=== PATIENT | female | born 1980 | race Two or more races ===

== ENCOUNTER 2017-09-26 11:18 | Emergency (ER) | payer OTHER ==
[~2017-09-26] VITALS: Ht 175.3 cm; Wt 108.9 kg
[2017-09-26 12:37] LABS: Basophils # (auto) 0 uL; Basophils % (auto) 0.3 % (0.0-2.0); Eosinophils # (auto) 0.2 uL; Eosinophils % (auto) 2.5 % (0.0-7.0); Hematocrit 39.7 % (36.0-46.0); Hemoglobin 13.7 g/dL (12.2-16.2); Lymphocytes % (auto) 27.1 % (10.0-50.0); Mean Corpuscular Hemoglobin 30.3 pg (28.0-32.0); Mean Corpuscular Hgb Conc. 34.6 g/dL (32.0-36.0); Mean Corpuscular Volume 87.7 fL (80.0-100.0); Monocytes # (auto) 0.5 uL; Monocytes % (auto) 6.7 % (0.0-12.0); Neutrophils # (auto) 4.8 uL; Neutrophils % (auto) 63.4 % (37.0-80.0); Nucleated Red Blood Cells % 0.1 %; Platelet Count (auto) 315 10^3/uL (140-450); Red Blood Cells 4.53 10^6/uL (4.0-5.20); Red Cell Distribution Width 12.7 % (11.8-14.3); White Blood Cell 7.5 10^3/uL (4.4-10.8)
[2017-09-26 13:39] LABS: BUN/Creatinine Ratio 9.6; Bilirubin, Total 0.6 mg/dL (0.2-1.0); Calcium 8.4 mg/dL (8.5-10.1); Total Protein 7.7 g/dL (6.4-8.2)
[2017-09-26 13:40] LABS: Albumin 3.7 g/dL (3.4-5.0)
[2017-09-26] MEDS ORDERED: ACETAMINOPHEN 325 MG TAB PO ONE (14:45)
[2017-09-26 15:00] VITALS: BP 168/100
[2017-09-26] MEDS ORDERED: HYDROcodone-ACET 10/325MG TAB PO ONE (15:00)
== END 2017-09-26 15:04 | disposition home or self-care (01) ==
LOC: ER 11:18
DX: O20.0 Threatened abortion (principal); O16.1 Unspecified maternal hypertension, first trimester; Z3A.09 9 weeks gestation of pregnancy
CPT/HCPCS: 36415; 76801; 80053; 84702; 85025

== ENCOUNTER 2020-12-07 12:19 | Inpatient (IN) | payer OTHER ==
[~2020-12-07] VITALS: Ht 175.3 cm; Wt 117.4 kg
[2020-12-07] MEDS ORDERED: DexAMETHasone SOD PHOS 10MG/1ML VIAL INJ IV ONE (12:45)
[2020-12-07] MEDS ORDERED: cefTRIAXone 1GM/50ML D5W 50 ML IV ONE (13:00)
[2020-12-07 13:39] LABS: Basophils # (auto) 0 10 ^3/uL (0-0.2); Basophils % (auto) 0.3 % (0.0-2.0); Eosinophils # (auto) 0 10 ^3/uL (0-0.8); Hematocrit 40.4 % (36.0-46.0); Lymphocytes # (auto) 1.1 10 ^3/uL (0.4-5.4); Lymphocytes % (auto) 23.7 % (10.0-50.0); Mean Corpuscular Hemoglobin 29.3 pg (28.0-32.0); Mean Corpuscular Hgb Conc. 34.6 g/dL (32.0-36.0); Mean Corpuscular Volume 84.6 fL (80.0-100.0); Monocytes # (auto) 0.4 10 ^3/uL (0-1.3); Monocytes % (auto) 8.4 % (0.0-12.0); Neutrophils # (auto) 3.1 10 ^3/uL (1.6-8.6); Neutrophils % (auto) 67.6 % (37.0-80.0); Nucleated Red Blood Cells % 0.1 %; Platelet Count (auto) 215 10^3/uL (140-450); Red Blood Cells 4.78 10^6/uL (4.0-5.20); Red Cell Distribution Width 12.4 % (11.8-14.3); White Blood Cell 4.6 10^3/uL (4.4-10.8)
[2020-12-07 13:40] LABS: Urine Bacteria FEW /hpf (None Seen); Urine Blood Negative /uL (Negative); Urine Specific Gravity 1.004 (1.001-1.035); Urine WBC 34 /hpf (0 - 5)
[2020-12-07 13:54] LABS: Albumin 3.5 g/dL (3.4-5.0); Anion Gap 6 (5-15); Blood Urea Nitrogen 5 mg/dL (7-18); Calcium 7.8 mg/dL (8.5-10.1); Carbon Dioxide 26 mmol/L (21-32); Chloride 106 mmol/L (98-107); Glucose 116 mg/dL (74-106); Potassium 3.5 mmol/L (3.5-5.1); Sodium 138 mmol/L (136-145)
[2020-12-07] MEDS ORDERED: ACETAMINOPHEN 325 MG TAB PO ONE (14:00)
[2020-12-07] MEDS ORDERED: ONDANSETRON HCL 4 MG/2 ML VIAL IV ONE (14:00)
[2020-12-07 14:02] LABS: Alanine Aminotransferase 40 U/L (13-56); Alkaline Phosphatase 94 U/L (45-117); Aspartate Aminotransferase 36 U/L (15-37); BUN/Creatinine Ratio 6.6; Bilirubin, Total 0.3 mg/dL (0.2-1.0); CRP High Sensitivity 5.38 mg/dL (< 0.3); GFR African American 110 mL/min; GFR Non-African American 91 mL/min; Total Protein 7.4 g/dL (6.4-8.2)
[2020-12-07] MEDS ORDERED: HYDROcodone-ACET 5/325MG TAB PO ONE (16:15)
[2020-12-07] MEDS ORDERED: IOHEXOL 350 MG/ML 100ML IJ ONE (16:22)
[2020-12-07] MEDS ORDERED: REMDESIVIR PER PHARMACY 0 ML IV SCH (17:15)
[2020-12-07] MEDS ORDERED: MORPHINE SULF INJ 2 MG/ML SYRINGE 1ML IV PRN (17:15)
[2020-12-07] MEDS ORDERED: NITROGLYCERIN 0.4 MG SL TAB SL PRN (17:15)
[2020-12-07] MEDS: ZINC SULFATE 220mg CAP or TAB PO SCH (18:16)
[2020-12-07] MEDS: AZITHROMYCIN 500MG/ 250ML 250 ML IV SCH (18:17)
[2020-12-07] MEDS: ONDANSETRON HCL 4 MG/2 ML VIAL IV PRN (20:31)
[2020-12-07] MEDS: BUDESONIDE (INHALATION) 180 MCG IH IN SCH (22:00)
[2020-12-07 22:12] LABS: Thyroid Stimulating Hormone 0.31 uIU/mL (0.358-3.74)
[2020-12-07 22:23] VITALS: BP 135/85
[2020-12-07] MEDS: ENOXAPARIN SOD 40 MG/0.4 ML SYRINGE SC SCH (22:50)
[2020-12-07] MEDS: ACETAMINOPHEN 500 MG TAB PO PRN (22:52)
[2020-12-07 23:10] VITALS: BP 135/85
[2020-12-07] MEDS ORDERED: GABA300C10 PO (23:32)
[2020-12-07] MEDS ORDERED: AMLO-489 PO (23:32)
[2020-12-07] MEDS ORDERED: SULF500T8 PO (23:32)
[2020-12-07] MEDS ORDERED: IRBE150T26 PO (23:38)
[2020-12-08 01:47] VITALS: BP 135/85
[2020-12-08 05:00] VITALS: BP 115/78
[2020-12-08 05:53] LABS: Basophils # (auto) 0 10 ^3/uL (0-0.2); Basophils % (auto) 0.1 % (0.0-2.0); Eosinophils # (auto) 0 10 ^3/uL (0-0.8); Hematocrit 37.8 % (36.0-46.0); Hemoglobin 13.6 g/dL (12.2-16.2); Lymphocytes # (auto) 1.2 10 ^3/uL (0.4-5.4); Lymphocytes % (auto) 29.5 % (10.0-50.0); Mean Corpuscular Volume 83.3 fL (80.0-100.0); Monocytes # (auto) 0.4 10 ^3/uL (0-1.3); Monocytes % (auto) 10.9 % (0.0-12.0); Neutrophils # (auto) 2.4 10 ^3/uL (1.6-8.6); Neutrophils % (auto) 59.5 % (37.0-80.0); Nucleated Red Blood Cells % 0.1 %; Platelet Count (auto) 217 10^3/uL (140-450); Red Blood Cells 4.54 10^6/uL (4.0-5.20); Red Cell Distribution Width 12.5 % (11.8-14.3); White Blood Cell 4.1 10^3/uL (4.4-10.8)
[2020-12-08 06:15] LABS: Albumin 3.3 g/dL (3.4-5.0); Potassium 4.1 mmol/L (3.5-5.1)
[2020-12-08 06:19] LABS: BUN/Creatinine Ratio 12.5; Total Protein 7.2 g/dL (6.4-8.2)
[2020-12-08] MEDS: DexAMETHasone SOD PHOS 10MG/1ML VIAL INJ IV SCH (08:27)
[2020-12-08] MEDS: ZINC SULFATE 220mg CAP or TAB PO SCH (08:28)
[2020-12-08] MEDS: AZITHROMYCIN 500MG/ 250ML 250 ML IV SCH (08:28)
[2020-12-08] MEDS: ASCORBIC ACID 1,000 MG TAB PO SCH (08:28)
[2020-12-08] MEDS: CHOLECALCIFEROL (VITD3) 2,000 UNIT CAP/TAB PO SCH (08:28)
[2020-12-08] MEDS: ENOXAPARIN SOD 40 MG/0.4 ML SYRINGE SC SCH ×2 (08:28→20:59)
[2020-12-08] MEDS: cefTRIAXone 1GM/50ML D5W 50 ML IV SCH (08:28)
[2020-12-08] MEDS: BUDESONIDE (INHALATION) 180 MCG IH IN SCH ×2 (08:43→21:44)
[2020-12-08 09:01] VITALS: BP 136/90
[2020-12-08] MEDS: ACETAMINOPHEN 325 MG TAB PO PRN (10:41)
[2020-12-08 13:00] VITALS: BP 130/86
[2020-12-08 17:06] VITALS: BP 119/84
[2020-12-08] MEDS: ALBUTEROL SULF HFA 90MCG INH 200DOSE IN PRN (21:44)
[2020-12-08 22:00] VITALS: BP 144/97
[2020-12-08] MEDS: ACETAMINOPHEN 500 MG TAB PO PRN (23:25)
[2020-12-09 05:00] VITALS: BP 142/97
[2020-12-09] MEDS: ACETAMINOPHEN 325 MG TAB PO PRN (05:43)
[2020-12-09] MEDS: ALBUTEROL SULF HFA 90MCG INH 200DOSE IN PRN (06:31)
[2020-12-09] MEDS: BUDESONIDE (INHALATION) 180 MCG IH IN SCH (06:32)
[2020-12-09] MEDS ORDERED: IVERMECTIN 3 MG TAB PO ONE (07:00)
[2020-12-09 07:13] LABS: Basophils # (auto) 0 10 ^3/uL (0-0.2); Basophils % (auto) 0.1 % (0.0-2.0); Eosinophils # (auto) 0 10 ^3/uL (0-0.8); Hemoglobin 13.5 g/dL (12.2-16.2); Lymphocytes # (auto) 1.7 10 ^3/uL (0.4-5.4); Mean Corpuscular Hemoglobin 29.8 pg (28.0-32.0); Mean Corpuscular Hgb Conc. 35.4 g/dL (32.0-36.0); Mean Corpuscular Volume 84.1 fL (80.0-100.0); Monocytes # (auto) 0.5 10 ^3/uL (0-1.3); Monocytes % (auto) 6.1 % (0.0-12.0); Neutrophils # (auto) 5.5 10 ^3/uL (1.6-8.6); Neutrophils % (auto) 71.8 % (37.0-80.0); Platelet Count (auto) 248 10^3/uL (140-450); Red Blood Cells 4.52 10^6/uL (4.0-5.20); Red Cell Distribution Width 12.5 % (11.8-14.3); White Blood Cell 7.7 10^3/uL (4.4-10.8)
[2020-12-09 07:31] LABS: Calcium 7.9 mg/dL (8.5-10.1); Potassium 3.4 mmol/L (3.5-5.1)
[2020-12-09 07:33] LABS: BUN/Creatinine Ratio 14.5
[2020-12-09 09:00] VITALS: BP 147/92
[2020-12-09] MEDS: cefTRIAXone 1GM/50ML D5W 50 ML IV SCH (09:00)
[2020-12-09] MEDS: DexAMETHasone SOD PHOS 10MG/1ML VIAL INJ IV SCH (09:36)
[2020-12-09] MEDS: CHOLECALCIFEROL (VITD3) 2,000 UNIT CAP/TAB PO SCH (09:37)
[2020-12-09] MEDS: AZITHROMYCIN 500MG/ 250ML 250 ML IV SCH (09:37)
[2020-12-09] MEDS: ENOXAPARIN SOD 40 MG/0.4 ML SYRINGE SC SCH (09:37)
[2020-12-09] MEDS: ZINC SULFATE 220mg CAP or TAB PO SCH (09:37)
[2020-12-09] MEDS: ASCORBIC ACID 1,000 MG TAB PO SCH (09:37)
[2020-12-09] MEDS: ONDANSETRON HCL 4 MG/2 ML VIAL IV PRN (10:30)
[2020-12-09] MEDS: ACETAMINOPHEN 500 MG TAB PO PRN (11:30)
== END 2020-12-09 13:55 | disposition home or self-care (01) | DRG 177 ==
LOC: ER 12:19 → TELE 17:18 → TELE-EAST 21:12
PROVIDERS: ADMIT Nurse Practitioner Acute Care; ATTEND Internal Medicine
DX: U07.1 COVID-19 (principal); J12.82 Pneumonia due to coronavirus disease 2019; J96.91 Respiratory failure, unspecified with hypoxia; N12 Tubulo-interstitial nephritis, not specified as acute or chronic; D68.59 Other primary thrombophilia; D89.839 Cytokine release syndrome, grade unspecified; E66.9 Obesity, unspecified; K76.0 Fatty (change of) liver, not elsewhere classified; I10 Essential (primary) hypertension
CPT/HCPCS: 36415; 36600; 71045; 71275; 80048; 80053; 81001; 82306; 82728; 82805; 82962; 83605; 83615; 83735; 83880; 84443; 84484; 85025; 85049; 85379; 86141; 87040; 87426; 94640; 96365; 96366; 96367; 96375; 96376; 99291; G0378; J0696; J1100; J2405

== ENCOUNTER 2021-09-02 12:13 | Emergency (ER) | payer BC, OTHER ==
[~2021-09-02] VITALS: Ht 175.3 cm; Wt 111.1 kg
[~2021-09-02 12:13] MED LIST: AMLO-489 PO; GABA300C10 PO; IRBE150T26 PO; SULF500T8 PO
[2021-09-02 13:11] VITALS: BP 138/95
[2021-09-02] MEDS ORDERED: PROM1SOL4 PO (13:46)
[2021-09-02] MEDS ORDERED: AMOX-277 PO (13:46)
[2021-09-02] MEDS ORDERED: IBUP800T27 PO (13:46)
[2021-09-02] MEDS: IBUPROFEN 800 MG TAB PO ONE (14:06)
== END 2021-09-02 14:11 | disposition home or self-care (01) ==
LOC: ER 12:13
DX: J20.9 Acute bronchitis, unspecified (principal); H66.91 Otitis media, unspecified, right ear; I10 Essential (primary) hypertension; M19.90 Unspecified osteoarthritis, unspecified site
CPT/HCPCS: 71046